=== PATIENT | male | born 1990 | race Caucasian/White ===

== ENCOUNTER 2016-10-19 01:54 | Emergency (ER) | payer OTHER ==
[2016-10-19 02:02] VITALS: RESP 18; TEMP 97.9; O2SAT 96
--- NOTE | 2016-10-19 02:05 | EDPHY ---
H & P Stated Complaint: right shoulder dislocation HPI/ROS: HPI CHIEF COMPLAINT: Right shoulder pain HISTORY OF PRESENT ILLNESS: This patient otherwise healthy 26-year-old male, presents emergency room states he woke up was having a bad dream and dislocated his right shoulder. He has a history of shoulder dislocation multiple times on his right shoulder. He has also had surgery of the shoulder. Denies trauma. Denies fall. Sometimes able to get his shoulder back in place. However was unable to get his shoulder back in place tonight.. Past Medical History: Shoulder dislocations multiple in the past. Past Surgical History: Right shoulder surgery. Social History: Denies daily use drugs alcohol tobacco products. Family History: Noncontributory ROS REVIEW OF SYSTEMS: A comprehensive 10 point review of systems is otherwise negative aside from elements mentioned in the history of present illness. Exam Constitutional triage nursing summary reviewed, vital signs reviewed, awake/ alert. Eyes normal conjunctivae and sclera, EOMI, PERRLA. HENT normal inspection, atraumatic, moist mucus membranes, no epistaxis, neck supple/ no meningismus, no raccoon eyes. Respiratory clear to auscultation bilaterally, normal breath sounds, no respiratory distress, no wheezing. Cardiovascular rate normal, regular rhythm, no murmur, no edema, distal pulses normal. Gastrointestinal soft, non-tender, no rebound, no guarding, normal bowel sounds, no distension, no pulsatile mass. Genitourinary no CVA tenderness. Musculoskeletal right arm neurovascular intact good cap refill. Good distal pulse. Tender palpation over the lateral right shoulder. no midline vertebral tenderness, full range of motion, no calf swelling, no tenderness of extremities , no meningismus, good pulses, neurovascularly intact. Skin pink, warm, & dry, no rash, skin atraumatic. Neurologic awake, alert and oriented x 3, AAOx3, moves all 4 extremities equally, motor intact, sensory intact, CN II-XII intact, normal cerebellar, normal vision, normal speech. Psychiatric normal mood/affect. Heme/Lymph/Immune no lymphadenopathy. Differential Diagnosis: Includes but is not limited to in a particular order, shoulder dislocation, anterior shoulder dislocation, fracture. Medical Decision Making: Plan for this patient will attempt a reduction without sedation at this time. However he cannot tolerate it may need sedation medication. Re-evaluation: 0209AM: With gentle manipulation in the prone position. I was able to reduce his anterior right shoulder dislocation. He is now getting a post reduction x- ray at this time. His right arm is neurovascular intact good cap refill, good pulse. Patient be placed in a sling for comfort. Understands follow-up with Orthopedics. ED x-ray right shoulder: Humeral head in the appropriate position. No fracture. Image interpreted by myself. Source: Patient - Personal History Current Tetanus/Diphtheria Vaccine: Unsure Current Tetanus Diphtheria and Acellular Pertussis (TDAP): Unsure Tetanus Vaccine Date: <10 years - Medical/Surgical History Hx Asthma: No Hx Chronic Respiratory Disease: No Hx Diabetes: No Hx Cardiac Disease: No Hx Renal Disease: No Hx Cirrhosis: No Hx Alcoholism: No Hx HIV/AIDS: No Hx Splenectomy or Spleen Trauma: No Other PMH: rigt shoulder sx/ dislocations - Social History Smoking Status: Never smoked Constitutional: Initial Vital Signs Temperature (C) 36.6 C 10/19/16 01:55 Heart Rate 89 10/19/16 01:55 Respiratory Rate 18 10/19/16 01:55 Blood Pressure 153/110 H 10/19/16 01:55 O2 Sat (%) 96 10/19/16 01:55 O2 Delivery Mode Room Air Allergies/Adverse Reactions: No Known Allergies Allergy (Unverified 10/19/16 01:57) Home Medications: Medication Instructions Recorded NK [No Known Home Meds] 10/19/16 Departure - Departure Disposition: Home, Routine, Self-Care Clinical Impression: Shoulder dislocation Qualifiers: Encounter type: initial encounter Laterality: right Qualified Code(s): S43.004A - Unspecified dislocation of right shoulder joint, initial encounter Condition: Good Instructions: Shoulder Dislocation (ED) Additional Instructions: 1. Ice your shoulder. 2. Stay in your sling. Follow up with Orthopedics. Referrals: Patient,NotPresent [Primary Care Provider] - As per Instructions Eulogio Bryant MD [Medical Doctor] - As per Instructions
[2016-10-19 02:31] VITALS: BP 129/77; PULSE 88
== END 2016-10-19 02:30 | disposition home or self-care (01) ==
PROC: 0RSJXZZ Reposition Right Shoulder Joint, External Approach (ICD-10-PCS; principal; 2016-10-19)
DX: M24.411 Recurrent dislocation, right shoulder (principal)
CPT/HCPCS: A4565